=== PATIENT | male | born 1990 | race African-American/Black ===

== ENCOUNTER 2017-07-27 20:31 | Emergency (ER) | payer SELFPAY ==
[~2017-07-27] VITALS: Ht 172.7 cm; Wt 61.2 kg
[2017-07-27 20:55] VITALS: BP 128/84
[2017-07-27] MEDS ORDERED: IBUPROFEN600 MG ORAL (21:38)
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
[2017-07-27 21:47] VITALS: BP 128/84
== END 2017-07-27 21:49 | disposition home or self-care (01) ==
LOC: EMR 21:33
DX: S39.012A Strain of muscle, fascia and tendon of lower back, initial encounter (principal); S40.011A Contusion of right shoulder, initial encounter; V43.62XA Car passenger injured in collision with other type car in traffic accident, initial encounter; Y92.410 Unspecified street and highway as the place of occurrence of the external cause
CPT/HCPCS: 99283